=== PATIENT | male | born 1990 | race Two or more races ===

== ENCOUNTER 2017-11-08 14:41 | Emergency (ER) | payer SELFPAY ==
[~2017-11-08] VITALS: Ht 170.2 cm; Wt 70.0 kg
[2017-11-08 15:01] VITALS: BP 106/51; PULSE 63; RESP 18; TEMP 98.7; O2SAT 100
[2017-11-08] MEDS ORDERED: LIDOCAINE HCL 1% 50 ML VIAL XX ONE (17:00)
[2017-11-08] MEDS ORDERED: cefTRIAXone 250 MG VIAL IM ONE (17:00)
[2017-11-08] MEDS ORDERED: AZITHROMYCIN PWD FOR SUSP 1 GM PACKET PO ONE (17:00)
--- NOTE | 2017-11-08 17:04 | PD ---
HPI Chief Complaint: Medical Clearance Time Seen by Provider: 16:42 Travel History International Travel<30 days: No Contact w/Intl Traveler<30days: No Traveled to known affect area: No History of Present Illness HPI 26-year-old male presents emergency department with concern for possible STI. Says that he has had 2 partners in the last month and one of these partners said that she went to get checked out and was told she had an infection. She allegedly accused him of giving her an infection. Patient says that he has no symptoms. He denies any lesions or penile discharge. He denies nausea, vomiting, diarrhea. Says that he went to the health department however, he was unable to be seen because he did not have his wallet or any other identifying information with him. Says that he can he is concerned and he would like to be cleared of the accusations. [facility] Past Medical History Medical History: Denies Significant Hx Tetanus Vaccination: < 5 Years Past Surgical History Surgical History: No Previous Surgery Social History Alcohol Use: Yes Tobacco Use: Yes Substance Use: No Allergies-Medications (Allergen,Severity, Reaction): Coded Allergies: No Known Allergies (Unverified , 11/08/17) Reported Meds & Prescriptions Reported Meds & Active Scripts Active No Active Prescriptions or Reported Medications Review of Systems Except as stated in HPI: all other systems reviewed are Neg Physical Exam Narrative GENERAL: Well-nourished, well-developed patient, in NAD SKIN: Focused skin assessment warm/dry. No rashes or lesions. HEAD: Normocephalic. Atraumatic. EYES: No scleral icterus. No injection or drainage. THROAT: No pharyngeal injection, exudates, or tonsillar hypertrophy. Airway is patent. NECK: Supple, trachea midline. No JVD or lymphadenopathy. No meningismus. MUSCULOSKELETAL: No cyanosis, or edema. exam deferred BACK: Nontender without obvious deformity. No CVA tenderness. Data Data Last Documented VS Vital Signs Date Time Temp Pulse Resp B/P (MAP) Pulse Ox O2 Delivery O2 Flow Rate FiO2 11/08/17 15:01 98.7 63 18 106/51 (69) 100 Orders Orders Gc And Chlamydia Pcr (11/08/17 16:49) Azithromycin Powd Pack (Zithromax Powd P (11/08/17 17:00) Ceftriaxone Inj (Rocephin Inj) (11/08/17 17:00) Lidocaine 1% Inj (50 Ml) (Xylocaine 1% I (11/08/17 17:00) Ed Discharge Order (11/08/17 20:26) Labs Laboratory Tests Test 11/08/17 17:10 Chlamydia trachomatis DNA (PCR) NOT DETECTED Neisseria gonorrhoeae DNA (PCR) NOT DETECTED MDM Medical Decision Making Medical Screen Exam Complete: Yes Emergency Medical Condition: Yes Differential Diagnosis Urethritis, sexual encounter, STI Narrative Course 26-year-old male presents emergency department for evaluation of a possible STI. Patient denies any symptoms to include fevers, chills, nausea, vomiting, diarrhea, penile discharge or lesions. Says he has had 2 partners in the last month and she was notified this week that 1 of them may have had an infection. Vital signs are stable. I discussed the potential options of treatment versus testing and patient opted for testing and treatment today. Ceftriaxone 250 and azithromycin administered in the emergency department today. Patient said he wanted to wait for the results come back although I told him to be an extended amount of time. Results were negative for chlamydia and gonorrhea. Patient discharged and advised to follow-up with his primary care physician. Diagnosis Primary Impression: Exposure to potential infection Referrals: [facility] Dept. Additional Instructions: If you develop fever, chills, severe abdominal pain, persistent vomiting or inability to eat return to the emergency department. If there is a concern that you have sexually transmitted disease, your partner should be tested. You should followup with the Health department to get tested for other sexually transmitted diseases like HIV and syphilis if there is suspicion of other infections, as we do not test for these in the emergency department Scripts No Active Prescriptions or Reported Meds Disposition: 01 DISCHARGE HOME Condition: Stable Marlyn Knight Nov 08, 2017 17:04
== END 2017-11-08 20:42 | disposition home or self-care (01) ==
LOC: NEPK 14:41
DX: Z20.2 Contact with and (suspected) exposure to infections with a predominantly sexual mode of transmission (principal)
CPT/HCPCS: 87491; 87591; 96372; 99283; J0696